=== PATIENT | female | born 1930 | race Caucasian/White ===

== ENCOUNTER → 2017-01-29 | Outpatient (CLI) | payer MEDICARE, OTHER | END | disposition short-term general hospital (02) | LOC: CLENT 09:04 | DX: H66.001 Acute suppurative otitis media without spontaneous rupture of ear drum, right ear (principal); H66.012 Acute suppurative otitis media with spontaneous rupture of ear drum, left ear; H92.12 Otorrhea, left ear ==

== ENCOUNTER → 2017-02-12 | Outpatient (CLI) | payer MEDICARE, OTHER | END | disposition short-term general hospital (02) | LOC: CLENT 08:58 | DX: H65.03 Acute serous otitis media, bilateral (principal); H69.83 Other specified disorders of Eustachian tube, bilateral; H93.8X3 Other specified disorders of ear, bilateral ==